=== PATIENT | female | born 1970 | race Caucasian/White ===

== ENCOUNTER → 2016-11-29 | Outpatient (CLI) | payer BC ==
[~2016-11-29] MED LIST: LAMO25TA PO; METH1TAB10 PO; METH5TAB4 PO; ONDA4TAB10 SL; OPTIRAY 320 IV PRN; PRENTAB26 PO; SERT50TA PO
--- NOTE | 2016-11-29 09:13 | DIAGNOSTIC IMAGING REPORT ---
CT ABD/PELVIS IV AND ORAL CONT CLINICAL HISTORY: K42.9 Periumbilical [id number] COMPARISON STUDY: None. TECHNIQUE: Following the IV administration of 94 mL of Optiray-320, CT scan of the abdomen and pelvis was performed from the lung bases to the proximal femurs. Images are reviewed in the axial, sagittal, and coronal planes. IV contrast was administered without complication. CT DOSE: 677.32 mGy.cm FINDINGS: Lower chest: There are mild dependent atelectatic changes. Liver: The contrast-enhanced liver is normal in size, contour, and attenuation. There is no intrahepatic biliary ductal dilatation. The hepatic veins and portal veins are patent. Gallbladder: Unremarkable. Spleen: Normal in size and attenuation. Pancreas: Unremarkable. Adrenal glands: Unremarkable. Kidneys: There is symmetric renal cortical enhancement. The kidneys are normal in size without hydronephrosis. Bowel: There are postsurgical changes of gastric bypass. There are no transition zones indicate bowel obstruction. The appendix appears normal. There is no acute diverticulitis. There is a periumbilical hernia with a neck measuring 33 mm. This contains a small knuckle of small bowel. There are no obstructive changes. Peritoneum: There is no intraperitoneal free air or abdominal ascites. Vasculature: The abdominal aorta is normal in course and caliber. Adenopathy: None. Pelvic viscera: The bladder, and pelvic viscera are unremarkable. Skeletal structures: No destructive osseous lesions are seen. IMPRESSION: 1. Ventral hernia with a 33 mm neck located immediately superior to the umbilicus. This contains a small knuckle of small bowel. There is no current evidence of obstruction 2. No evidence of bowel obstruction. No evidence of free air 3. No evidence of acute appendicitis. No evidence of acute diverticulitis Electronically signed by: Christo Woods M.D. 11/29/2016 9:12 AM Dictated Date/Time: 11/29/2016 8:58 AM
== END | disposition home or self-care (01) ==
LOC: C.CTS 08:27
PROVIDERS: ATTEND Surgery
DX: K42.9 Umbilical hernia without obstruction or gangrene (principal)

== ENCOUNTER 2017-02-08 21:42 | Emergency (ER) | payer BC ==
[~2017-02-08] VITALS: Ht 157.5 cm; Wt 92.0 kg
[~2017-02-08 21:42] MED LIST changes: -LAMO25TA PO; -METH1TAB10 PO; -ONDA4TAB10 SL; -OPTIRAY 320 IV PRN
[2017-02-08 21:46] VITALS: TEMP 36.7; Ht 157.5 cm; Wt 92.0 kg
[2017-02-08] MEDS ORDERED: METH1TAB10 PO (22:15)
[2017-02-08] MEDS ORDERED: LAMO25TA PO (22:15)
[2017-02-08] MEDS ORDERED: MoRPHine SULFATE 10 MG/ML CARP/VIAL IV STA (22:37)
[2017-02-08] MEDS ORDERED: ONDANSETRON INJ 2 MG/ML 2 ML VIAL IV STA (22:37)
[2017-02-08] MEDS ORDERED: SODIUM CHLORIDE 0.9% 1000ML 1,000 ML IV STA (22:37)
[2017-02-08] MEDS ORDERED: OPTIRAY 320 IV PRN (22:45)
[2017-02-08 22:58] LABS: BASO % 0.1 %; BASO ABS # 0.01 K/uL (0-0.2); COMPLETE YES; EOS % 0.3 %; HEMATOCRIT 39.4 % (37-47); IG% 0.2 %; LYMPH % 19.3 %; LYMPH ABS # 2.31 K/uL (1.2-3.4); MEAN CELL VOLUME 91.4 fL (80-100); MEAN CORPUSCULAR HEMOGLOBIN 31.8 pg (25-34); MEAN CORPUSCULAR HGB CONC 34.8 g/dl (32-36); MEAN PLATELET VOLUME 9.1 fL (7.4-10.4); NEUT % 73.1 %; PLATELET COUNT 315 K/uL (130-400); RED BLOOD COUNT 4.31 M/uL (4.2-5.4); WHITE BLOOD COUNT 11.99 K/uL (4.8-10.8)
[2017-02-08 23:19] LABS: BUN/CREATININE RATIO 14.7 (10-20); CALCIUM 8.7 mg/dl (8.5-10.1); CREATININE 0.73 mg/dl (0.60-1.20); POTASSIUM 3.5 mmol/L (3.5-5.1)
--- NOTE | 2017-02-08 23:58 | DIAGNOSTIC IMAGING REPORT ---
CT SCAN OF THE ABDOMEN AND PELVIS WITH IV CONTRAST CLINICAL HISTORY: Left-sided hernia repair performed yesterday. Pain at incision site. COMPARISON STUDY: Abdominal CT dated 11/29/2016. TECHNIQUE: Following the IV administration of 100 cc of Optiray 320, CT scan of the abdomen and pelvis is performed from the lung bases to the proximal femora. Images are reviewed in the axial, sagittal, and coronal planes. IV contrast was administered without complication. Automated dose control exposure was utilized. CT DOSE: 741.40 mGy.cm FINDINGS: Lung bases: The heart is normal in size and without pericardial effusion. There is significant bibasilar atelectasis. The lung bases are otherwise clear. Liver: The contrast-enhanced liver is normal in size, contour, and attenuation. There is no intrahepatic biliary ductal dilatation. The hepatic veins and portal veins are patent. Gallbladder: Unremarkable. Spleen: Normal in size and attenuation. Pancreas: Unremarkable. Adrenal glands: Unremarkable. Kidneys: The contrast enhanced kidneys are normal in size and without hydronephrosis. The kidneys enhance symmetrically. Abdominal vasculature: The abdominal aorta is normal in course and caliber. Stomach and bowel: There are postoperative changes consistent with a Danielle-en-Y gastric bypass procedure. No bowel obstruction is seen. A tiny hiatal hernia is noted. There is moderate colonic fecal retention. The appendix is well-visualized and normal. Abdominal wall: There is a small fat-containing umbilical hernia. There are foci of subcutaneous gas within the abdominal pannus. Foci of induration within the right lower quadrant on image #307 as well as induration in the periumbilical soft tissues are likely related to laparoscopy ports. There is a small gas and fluid containing collection in the ventral abdominal wall just above the umbilicus seen on axial image #275. This measures 3.4 x 5.3 cm and does not extend through the peritoneal lining. Peritoneum: There is no intraperitoneal free air or abdominal ascites. Lymphadenopathy: None. Pelvic viscera: The bladder, uterus, and adnexa are normal as visualized. Tiny ovarian follicles are noted. Phleboliths are observed in the pelvis. Skeletal structures: No lytic or blastic lesions are seen. IMPRESSION: 1. There are no acute infectious or inflammatory findings in the abdomen or pelvis. 2. There are postoperative changes consistent with a Danielle-en-Y gastric bypass procedure. No bowel obstruction is seen. 3. Foci of subcutaneous gas and mild induration within the ventral abdominal pannus are detailed above and likely related to the reported history of hernia repair performed yesterday. 4. There is a 5.3 cm gas and fluid containing collection within the ventral abdominal wall just above the umbilicus. Given the history of surgery one day previously this likely represents a postoperative seroma/hematoma. Abscess is considered unlikely given the time course. Clinical correlation will be required. 5. Additional findings as above. Electronically signed by: Gary Arreola M.D. 02/08/2017 11:57 PM Dictated Date/Time: 02/08/2017 11:50 PM
[2017-02-09] MEDS ORDERED: ONDANSETRON HOME PACK 4MG OD TAB PO ONE (00:45)
[2017-02-09] MEDS ORDERED: ONDA4TAB10 SL (00:48)
--- NOTE | 2017-02-09 00:49 | EMERGENCY ROOM VISIT NOTE ---
History First contact with patient: 21:58 Chief Complaint: ABDOMINAL PAIN Stated Complaint: HERNIA REPAIR,VOMITING,NAUSEA Nursing Triage Summary: Pt had surgery yesterday for hernia repair at [place]. Pt took the pain medication at 1230 today and vomited 3 times. pt continues to have abdominal pain without medication. +nausea History of Present Illness The patient is a 46 year old female who presents to the Emergency Room with complaints of abdominal pain and vomiting. The patient had a hernia repair yesterday at . The patient states that she was feeling well after the procedure. She took an oxycodone this morning and states that she became nauseous afterward. She has had 3 episodes of vomiting. She has not been to take any pain medication since then. She reports that the pain is now worsening. She called her surgeon and they told her to come to the emergency department. She denies any fevers/chills. She states she does have a headache but has not been able to eat or drink much. She denies any urinary symptoms. She has not moved her bowels since the surgery. She denies any redness or drainage of the incisions. She rates her discomfort a 6/10. Review of Systems A complete 10 point review of systems was reviewed with the patient with pertinent positives and negatives as per history of present illness. All else were negative. Past Medical/Surgical History Medical Problems: (1) Eclamptic seizure (2) Eclamptic seizure (3) Headache (4) Hypertension (5) intrauterine 36 weeks 1day (6) intrauterine 36 weeks 1day Social History Smoking Status: Former Smoker Drug Use: none Marital Status: Occupation Status: employed Current/Historical Medications Scheduled Lamotrigine (Lamictal), 25 MG PO DAILY Methylphenidate Hcl (Ritalin), 15 MG PO BID Multivit/Min/Iron/Fol Ac/Pren ( Vitamin), 2 TAB PO QAM Ondasetron Odt (Zofran Odt), 4 MG SL Q6H Sertraline (Zoloft), 50 MG PO QAM Allergies Coded Allergies: Penicillins (Verified Allergy, Unknown, RASH, 02/08/17) Physical Exam Vital Signs Date Time Temp Pulse Resp B/P (MAP) Pulse Ox O2 Delivery O2 Flow Rate FiO2 02/09/17 01:07 80 18 118/65 95 02/08/17 23:50 80 18 115/62 94 Room Air 7/8/17 22:49 69 20 119/77 94 Room Air 02/08/17 21:46 36.7 86 16 111/79 95 Room Air Physical Exam VITALS: Vitals are noted on the nurse's note and reviewed by myself. Vital signs stable. GENERAL: This is a 46-year-old female, in no acute distress, nondiaphoretic, well-developed well-nourished. SKIN: There are 2 surgical incisions to the right side of the abdomen. They appear to be healing well and are without erythema or drainage. HEART: Regular rate and rhythm without murmurs gallops or rubs. LUNGS: Clear to auscultation bilaterally without wheezes, rales or rhonchi. ABDOMEN: Positive bowel sounds x 4. Soft, mild diffuse tenderness to palpation. No guarding or rebound tenderness. NEURO: Patient was alert and oriented to person place and time. Medical Decision & Procedures ER Provider Diagnostic Interpretation: CT SCAN OF THE ABDOMEN AND PELVIS WITH IV CONTRAST FINDINGS: Lung bases: The heart is normal in size and without pericardial effusion. There is significant bibasilar atelectasis. The lung bases are otherwise clear. Liver: The contrast-enhanced liver is normal in size, contour, and attenuation. There is no intrahepatic biliary ductal dilatation. The hepatic veins and portal veins are patent. Gallbladder: Unremarkable. Spleen: Normal in size and attenuation. Pancreas: Unremarkable. Adrenal glands: Unremarkable. Kidneys: The contrast enhanced kidneys are normal in size and without hydronephrosis. The kidneys enhance symmetrically. Abdominal vasculature: The abdominal aorta is normal in course and caliber. Stomach and bowel: There are postoperative changes consistent with a Danielle-en-Y gastric bypass procedure. No bowel obstruction is seen. A tiny hiatal hernia is noted. There is moderate colonic fecal retention. The appendix is well-visualized and normal. Abdominal wall: There is a small fat-containing umbilical hernia. There are foci of subcutaneous gas within the abdominal pannus. Foci of induration within the right lower quadrant on image #307 as well as induration in the periumbilical soft tissues are likely related to laparoscopy ports. There is a small gas and fluid containing collection in the ventral abdominal wall just above the umbilicus seen on axial image #275. This measures 3.4 x 5.3 cm and does not extend through the peritoneal lining. Peritoneum: There is no intraperitoneal free air or abdominal ascites. Lymphadenopathy: None. Pelvic viscera: The bladder, uterus, and adnexa are normal as visualized. Tiny ovarian follicles are noted. Phleboliths are observed in the pelvis. Skeletal structures: No lytic or blastic lesions are seen. IMPRESSION: 1. There are no acute infectious or inflammatory findings in the abdomen or pelvis. 2. There are postoperative changes consistent with a Danielle-en-Y gastric bypass procedure. No bowel obstruction is seen. 3. Foci of subcutaneous gas and mild induration within the ventral abdominal pannus are detailed above and likely related to the reported history of hernia repair performed yesterday. 4. There is a 5.3 cm gas and fluid containing collection within the ventral abdominal wall just above the umbilicus. Given the history of surgery one day previously this likely represents a postoperative seroma/hematoma. Abscess is considered unlikely given the time course. Clinical correlation will be required. 5. Additional findings as above. Electronically signed by: Gary Arreola M.D. Laboratory Results 02/08/17 22:45 Red Blood Count 4.31, Mean Corpuscular Volume 91.4, Mean Corpuscular Hemoglobin 31.8, Mean Corpuscular Hemoglobin Concent 34.8, Mean Platelet Volume 9.1, Neutrophils (%) (Auto) 73.1, Lymphocytes (%) (Auto) 19.3, Monocytes (%) (Auto) 7.0, Eosinophils (%) (Auto) 0.3, Basophils (%) (Auto) 0.1, Neutrophils # (Auto) 8.77, Lymphocytes # (Auto) 2.31, Monocytes # (Auto) 0.84, Eosinophils # (Auto) 0.04, Basophils # (Auto) 0.01 02/08/17 22:45 Test 02/08/17 22:45 White Blood Count 11.99 K/uL (4.8-10.8) Red Blood Count 4.31 M/uL (4.2-5.4) Hemoglobin 13.7 g/dL (12.0-16.0) Hematocrit 39.4 % (37-47) Mean Corpuscular Volume 91.4 fL (80-100) Mean Corpuscular Hemoglobin 31.8 pg (25-34) Mean Corpuscular Hemoglobin Concent 34.8 g/dl (32-36) Platelet Count 315 K/uL (130-400) Mean Platelet Volume 9.1 fL (7.4-10.4) Neutrophils (%) (Auto) 73.1 % Lymphocytes (%) (Auto) 19.3 % Monocytes (%) (Auto) 7.0 % Eosinophils (%) (Auto) 0.3 % Basophils (%) (Auto) 0.1 % Neutrophils # (Auto) 8.77 K/uL (1.4-6.5) Lymphocytes # (Auto) 2.31 K/uL (1.2-3.4) Monocytes # (Auto) 0.84 K/uL (0.11-0.59) Eosinophils # (Auto) 0.04 K/uL (0-0.5) Basophils # (Auto) 0.01 K/uL (0-0.2) RDW Standard Deviation 39.7 fL (36.4-46.3) RDW Coefficient of Variation 11.7 % (11.5-14.5) Immature Granulocyte % (Auto) 0.2 % Immature Granulocyte # (Auto) 0.02 K/uL (0.00-0.02) Anion Gap 8.0 mmol/L (3-11) Est Creatinine Clear Calc Drug Dose 103.8 ml/min Estimated GFR () 116.1 Estimated GFR (Non- 100.2 BUN/Creatinine Ratio 14.7 (10-20) Calcium Level 8.7 mg/dl (8.5-10.1) Total Bilirubin 0.8 mg/dl (0.2-1) Direct Bilirubin 0.2 mg/dl (0-0.2) Aspartate Amino Transf (AST/SGOT) 16 U/L (15-37) Alanine Aminotransferase (ALT/SGPT) 20 U/L (12-78) Alkaline Phosphatase 96 U/L (45-117) Total Protein 7.0 gm/dl (6.4-8.2) Albumin 3.5 gm/dl (3.4-5.0) Medications Administered Medications (Trade) Dose Ordered Sig/Megan Route Start Time Stop Time Status Last Admin Dose Admin Sodium Chloride 1,000 ml @ 999 mls/hr Q1H1M STAT IV 02/08/17 22:37 02/08/17 23:37 DC 02/08/17 22:46 999 MLS/HR Ondansetron HCl (Zofran Inj) 4 mg NOW STAT IV 02/08/17 22:37 02/08/17 22:39 DC 02/08/17 22:47 4 MG Morphine Sulfate (MoRPHine SULFATE INJ) 6 mg NOW STAT IV 02/08/17 22:37 02/08/17 22:39 DC 02/08/17 22:47 6 MG Ondansetron HCl (ZOFRAN ODT 4MG Home Pack) 1 homepack UD ONCE PO 02/09/17 00:45 02/09/17 00:46 DC 02/09/17 01:01 1 HOMEPACK ED Course The patient was evaluated as above. Labs were drawn and IV access was obtained. Patient was medicated with IV Zofran, morphine and fluids. CT of the abdomen and pelvis was performed and read by radiology as above. Patient was reevaluated and stated she felt much better. Discharge instructions were reviewed with the patient. The patient verbalized understanding of my assessment and treatment plan and was discharged home in good condition. Medical Decision Differential diagnosis includes postop infection, postop bleeding, adverse reaction to medication, among others. The patient is a 46-year-old female who presents today complaining of abdominal pain after a hernia repair yesterday. Labs revealed a mild leukocytosis consistent with vomiting or recent surgery. CT scan of the abdomen and pelvis was performed and showed evidence of a small hematoma/seroma, but no convincing evidence of abscess. Her incisions do not appear infected. I feel the patient' s vomiting is likely secondary to the oxycodone. She was given Zofran and felt much better. She will be given Zofran at home with her pain medication. She was instructed to call her surgeon on Friday to schedule follow-up. Based on the patient's presentation and work up, I feel the patient is stable for outpatient treatment. The patient was educated to return to the emergency department for any worsening of their current condition or new/concerning symptoms. She will follow up with her surgeon. The patient's case was reviewed with Dr. Rhodes, ED attending physician, who agreed with my assessment and treatment plan. Medication reconciliation: I attest that I have personally reviewed the patient 's current medication list. Blood pressure screening: Patient was found to have normal blood pressure on screening and does not require follow-up. Impression Primary Impression: Adverse reaction to narcotic drug Additional Impression: Vomiting Departure Information Dispostion Home / Self-Care Condition GOOD Prescriptions Ondasetron Odt (ZOFRAN ODT) 4 Mg Tab 4 MG SL Q6H for Nausea, #15 TAB Prov: Ashleigh Tony PA-C 02/09/17 Referrals Shakira Manzano M.D. (PCP) Patient Instructions My [facility] Additional Instructions You have been prescribed Zofran to be used for any nausea or vomiting. Take as prescribed. Continue the oxycodone at home as needed for pain. Call your surgeon Friday to let them know you were in the ER. Return here for any fevers, worsening pain, worsening vomiting or any other new/ concerning symptoms. Problem Qualifiers Primary Impression: Adverse reaction to narcotic drug Encounter type: initial encounter Qualified Codes: T40.605A - Adverse effect of unspecified narcotics, initial encounter Additional Impression: Vomiting Vomiting type: unspecified Vomiting Intractability: non-intractable Nausea presence: with nausea Qualified Codes: R11.2 - Nausea with vomiting, unspecified
[2017-02-09 01:07] VITALS: BP 118/65; PULSE 80; O2SAT 95
== END 2017-02-09 01:09 | disposition home or self-care (01) ==
LOC: C.EDB 21:42 → C.EDC 02-09 01:09
DX: R11.2 Nausea with vomiting, unspecified (principal); T40.605A Adverse effect of unspecified narcotics, initial encounter; I10 Essential (primary) hypertension; Z87.891 Personal history of nicotine dependence; Z79.899 Other long term (current) drug therapy

== ENCOUNTER 2022-06-28 16:58 | Inpatient (IN) ==
[2022-06-28] MEDS ORDERED: SODIUM CHLORIDE 0.9% 1000ML 1,000 ML IV STA (17:12)
[2022-06-28] MEDS ORDERED: ACETAMINOPHEN 500 MG TAB PO STA (17:12)
[2022-06-28] MEDS ORDERED: SODIUM CHLORIDE 0.9% 1000ML 1,000 ML IV SCH (17:15)
[2022-06-28 17:52] LABS: Hematocrit (blood only) 32.1 % (34.1-44.9); Hemoglobin 10.1 g/dl (12.0-16.0); Mean Platelet Volume 8.8 fL (9.4-12.3); Platelet Count 363 K/uL (130-400); White Blood Count 16.11 K/ul (4.8-10.8)
--- NOTE | 2022-06-28 18:13 | XRay Report ---
XR chest 1V portable HISTORY: 51 years-old Female Dyspnea acute shortness of breath COMPARISON: Chest radiograph 01/28/2022 TECHNIQUE: AP view of the chest FINDINGS: Cardiac silhouette is mildly enlarged. Mild right hemidiaphragmatic elevation. No pneumothorax, pleur al effusion, airspace consolidation or overt pulmonary edema identified. Bones of the chest appear gr ossly intact. IMPRESSION: No acute process. ACT 112: Negative or not required by law. The above report was generated using voice recognition software. It may contain grammatical, syntax o r spelling errors. Electronically signed by: Konstantin Licea M.D. 06/28/2022 6:11 PM
[2022-06-28 18:14] LABS: Albumin Globulin Ratio 0.9 (0.9-2); Albumin Level 3.5 gm/dl (3.4-5.0); BUN Creatinine Ratio 16.7 (10-20); Bilirubin,Total 0.7 mg/dl (0.2-1.0); Calcium 8.5 mg/dl (8.5-10.1); Creatinine Clr Calc Pharmacy 103.3 ml/min; Est GFR (Non-African American) 98.3 ml/min; Potassium 3.6 mmol/L (3.5-5.1); Total Protein 7.5 gm/dl (6.0-8.3)
[2022-06-28 18:17] LABS: Troponin I High Sensitivity 11.2 pg/ml (0-14)
[2022-06-28 18:18] LABS: Basophils # (auto) 0.08 K/uL (0-0.2); Basophils % (auto) 0.5 %; Eosinophils # (auto) 0.05 K/uL (0-0.50); Eosinophils % (auto) 0.3 %; Immature Granulocytes # (auto) 0.05 K/uL (0.00-0.02); Immature Granulocytes % (auto) 0.3 %; Lymphocytes # (auto) 0.97 K/uL (1.2-3.4); Mean Corpuscular Hemoglobin 26.9 pg (25.0-34.0); Mean Corpuscular Hgb Conc 31.5 g/dL (32.0-36.0); Mean Corpuscular Volume 85.4 fL (80.0-100.0); Monocytes # (auto) 0.46 K/uL (0.24-0.82); Monocytes % (auto) 2.9 %; RDW Coefficient of Variation 12.7 % (11.5-14.5); RDW Standard Deviation 39.4 fL (36.4-46.3); Red Blood Count 3.76 M/uL (3.93-5.22)
[2022-06-28] MEDS ORDERED: CEFEPIME 2,000 MG/20 ML VIAL IV STA (18:25)
[2022-06-28] MEDS ORDERED: SODIUM CHLORIDE 0.9% 1000ML 500 ML IV ONE (18:25)
[2022-06-28 18:35] LABS: Adenovirus PCR Not Detected (NotDetected); Bordetella parapertussis PCR Not Detected (NotDetected); Bordetella pertussis PCR Not Detected (NotDetected); Chlamydia pneumoniae PCR Not Detected (NotDetected); Coronavirus 229E PCR Not Detected (NotDetected); Coronavirus CoV-2 (COVID19)PCR Not Detected (NotDetected); Coronavirus HKU1 PCR Not Detected (NotDetected); Coronavirus NL63 PCR Not Detected (NotDetected); Coronavirus OC43PCR Not Detected (NotDetected); Human Metapneumovirus PCR Not Detected (NotDetected); Influenza A PCR Not Detected (NotDetected); Influenza B PCR Not Detected (NotDetected); Mycoplasma pneumoniae PCR Not Detected (NotDetected); Parainfluenza Virus 1 PCR Not Detected (NotDetected); Parainfluenza Virus 2 PCR Not Detected (NotDetected); Parainfluenza Virus 3 PCR Not Detected (NotDetected); Parainfluenza Virus 4 PCR Not Detected (NotDetected); Respiratory Syncytial VirusPCR Not Detected (NotDetected)
[2022-06-28 18:44] LABS: Rhinovirus/Enterovirus PCR DETECTED (NotDetected)
--- NOTE | 2022-06-28 19:17 | Emergency Department Note ---
Impression & Plan Flu-like symptoms, Leukocytosis, Fever, Rhinovirus infection, Hyponatremia, Shortness of breath ED Provider Note INFORMANT: Patient ED PROVIDER(S): Randal Rodriguez MD CHIEF COMPLAINT: Flulike symptoms PLAN: Disposition: Admitted Condition: Good Outpatient prescription management: none Referral: None MEDICAL DECISION MAKING: Patient presented because of flulike symptoms. She was very febrile and tachycardic. She was placed in isolation and work-up was initiated. Her CBC revealed a left shift on the differential and moderate leukocytosis. Chemistry panel revealed mild hyponatremia. Serum lactate was mildly elevated. Patient received 1500 mL of normal saline solution by bolus and was hydrated she was treated empirically with IV cefepime and Tylenol. Bio fire testing was ordered. Chest x-ray did not reveal any acute process. Vital signs began to improve. Bio fire testing revealed the presence of enterovirus/rhinovirus. Procalcitonin was mildly elevated. Patient was also given doxycycline IV. She was still very tachypneic and short of breath. Her testing revealed the presence of an enterovirus/rhinovirus however her blood work suggest possible bacterial infe ction with findings consistent with SIRS/early sepsis. In light of her symptoms and laboratory findings further management in the hospital will be necessary. Patient was in agreement. Consultation was made with Dr. Forest Luu of the [facility] service. Patient was evaluated in the ER for further management. Triage Nursing notes reviewed and agree them. Vital Signs: reviewed and remarkable for fever, tachycardia Differential diagnosis: Viral syndrome, otitis, pharyngitis, pneumonia, influenza, meningitis, urinary tract infection, sepsis, bacteremia, as well as other pathologies. Diagnostics interpreted by me: ECG: Twelve-lead ECG revealed sinus tachycardia at 127 bpm. Left axis deviation. No ST elevation or depression. Cardiac Monitoring: Cardiac monitoring ordered by me: The patient was placed on continuous cardiac monitoring and observed. It revealed a sinus tachycardia at 115 beats per minute without ectopy or evidence of dysrhythmia. Imaging studies: Chest x-ray as noted below. HPI: The patient is a 51year old female who presents to the Emergency Room with complaints of flulike symptoms. This started few days ago and is worsening today. The patient also notes the following associated symptoms, shortness of breath, mild headache, fever, congestion, mild cough. The patient has tried ibuprofen for relieving factors. Current pain is rated as 6/10. No known sick contacts. pt denies LOC, diaphoresis, visual changes, neck pain, chest pain, nausea, vomiting, abdominal pain, back pain, melena, hematochezia, urinary symptoms, numbness, weakness, lymphadenopathy, rash, or other complaints. ROS: See above HPI for pertinent positives & negatives. A total of 10 systems reviewed and were otherwise negative. PAST MEDICAL HISTORY:See Below , stress urinary incontinence PAST SURGICAL HISTORY:See Below, FAMILY HISTORY:See Below SOCIAL HISTORY:See Below, non-smoker HOME MEDICATIONS:See Below ALLERGIES:See Below VITALS:See Below PHYSICAL EXAMINATION: GENERAL: Awake, alert, ill-appearing, in mild distress HENT: Normocephalic, atraumatic. Oropharynx unremarkable. EYES: Normal conjunctiva. Sclera non-icteric. NECK: Inspection normal. Non-tender. Supple. No nuchal rigidity. FROM. No masses. RESPIRATORY: Coarse breath sounds bilaterally. No wheezes. No rales. Increased respiratory effort. CARDIAC: Very tachycardic rate. Normal rhythm. No murmurs. No rubs. Extremities warm and well perfused. Pulses equal. No JVD. GI: Soft, non-distended. No tenderness to palpation. No rebound or guarding. No masses. RECTAL: Deferred. MUSCULOSKELETAL: Atraumatic. Chest examination reveals no tenderness. The back is symmetrical on inspection without obvious abnormality. There is no CVA tenderness to palpation. No joint edema. LOWER EXTREMITIES: Calves are equal size bilaterally and non-tender. No edema. No discoloration. NEURO: Normal sensorium. No sensory or motor deficits noted. SKIN: No rash or jaundice noted. Randal Rodriguez MD Past Med/Surg History Medical History Eclamptic seizure Hypertension Surgical History No pertinent past surgical history Family History (Updated 05/30/22 @ 10:06 by RISA Rowe) Grandfather History of open heart surgery Grandmother (Maternal) Breast cancer Denies family history of Ovarian cancer Colorectal cancer Social History (Updated 05/30/22 @ 10:06 by RISA Rowe) Smoking Status: Never smoker Tobacco Type: Cigarettes Preferred Language: Swedish Feels Safe at Home: Yes Allergies Allergies Allergy/AdvReac Type Severity Reaction Status Date / Time Penicillins Allergy Unknown RASH Verified 06/28/22 20:04 Home Meds Home Medications Medication Instructions Recorded Confirmed acetaminophen 325 mg tablet 950 mg PO QID PRN Fever Or Pain 06/28/22 06/28/22 (Tylenol) dextroamphetamine sulfate 15 mg 15 mg PO DAILY 06/28/22 06/28/22 capsule,extended release ergocalciferol (vitamin D2) 1,250 1,250 mcg PO MO 06/28/22 06/28/22 mcg (50,000 unit) capsule (Vitamin D2) ibuprofen 200 mg tablet 600 mg PO Q4 PRN Pain 06/28/22 06/28/22 lamotrigine 200 mg tablet,extended 0 mg PO DAILY 06/28/22 06/28/22 release 24 hr sertraline 25 mg tablet (Zoloft) 0 mg PO DAILY 06/28/22 06/28/22 Results & Data (ED) Vital Signs Vital Signs - 24 hr 06/28/22 17:07 06/28/22 17:39 06/28/22 18:36 Temperature 39.6 C H 38.2 C H Temperature Source Temporal Artery Scan Oral Pulse Rate 138 H Pulse Rate [Right Finger] Respiratory Rate 26 H Respiratory Effort / Characteristics Short of Breath Respiratory Pattern Regular Blood Pressure 150/88 H Blood Pressure [Right Arm] Blood Pressure Mean 108 Blood Pressure Mean [Right Arm] Blood Pressure Position Sitting Pulse Oximetry 98 Oxygen Delivery Method Room Air Room Air Sepsis Recent Fever Within 48 Hours Yes Sepsis New/Unexplained Change in Mental Status No Sepsis Action Taken by Nursing No Action Required Pulse Oximetry Post Tiitration 98 06/28/22 18:36 06/28/22 19:29 06/28/22 20:02 Temperature Temperature Source Pulse Rate Pulse Rate [Right Finger] 111 H 104 H Respiratory Rate Respiratory Effort / Characteristics Respiratory Pattern Blood Pressure Blood Pressure [Right Arm] 116/67 Blood Pressure Mean Blood Pressure Mean [Right Arm] 83 Blood Pressure Position Pulse Oximetry 98 98 96 Oxygen Delivery Method Room Air Room Air Room Air Sepsis Recent Fever Within 48 Hours Sepsis New/Unexplained Change in Mental Status Sepsis Action Taken by Nursing Pulse Oximetry Post Tiitration Laboratory Data Result diagrams: 06/28/22 17:30 06/28/22 17:30 Lab Results 06/28/22 06/28/22 06/28/22 Range/Units 17:30 17:30 17:30 WBC 16.11 H (4.8-10.8) K/ul RBC 3.76 L (3.93-5.22) M/uL Hgb 10.1 L (12.0-16.0) g/dl Hct 32.1 L (34.1-44.9) % MCV 85.4 (80.0-100.0) fL MCH 26.9 (25.0-34.0) pg MCHC 31.5 L (32.0-36.0) g/dL RDW Std Deviation 39.4 (36.4-46.3) fL RDW Coeff of Andrea 12.7 (11.5-14.5) % Plt Count 363 (130-400) K/uL MPV 8.8 L (9.4-12.3) fL Immature Gran % (Auto) 0.3 % Neut % (Auto) 90.0 % Lymph % (Auto) 6.0 % [place] % (Auto) 2.9 % Eos % (Auto) 0.3 % Baso % (Auto) 0.5 % Neut # (Auto) 14.50 H (1.4-6.5) K/uL Lymph # (Auto) 0.97 L (1.2-3.4) K/uL [place] # (Auto) 0.46 (0.24-0.82) K/uL Eos # (Auto) 0.05 (0-0.50) K/uL Baso # (Auto) 0.08 (0-0.2) K/uL Immature Gran # (Auto) 0.05 H (0.00-0.02) K/uL Sodium 129 L (136-145) mmol/L Potassium 3.6 (3.5-5.1) mmol/L Chloride 101 (98-107) mmol/L Carbon Dioxide 18 L (21-32) mmol/L Anion Gap 10 (3-11) BUN 12 (6-23) mg/dl Creatinine 0.72 (0.6-1.2) mg/dl Est Cr Clr Drug Dosing 103.3 ml/min Est GFR ( Amer) 114.0 ml/min Est GFR (Non-Af Amer) 98.3 ml/min BUN/Creatinine Ratio 16.7 (10-20) Glucose 104 H (70-99(Fasting)) mg/dl Osmolality (280-300) mOsm/kg Lactate (0.4-2.0) mmol/L Calcium 8.5 (8.5-10.1) mg/dl Total Bilirubin 0.7 (0.2-1.0) mg/dl AST 24 (13-39) U/L ALT 14 (7-52) U/L Alkaline Phosphatase 92 (34-104) U/L Troponin I High Sens 11.2 D (0-14) pg/ml Total Protein 7.5 (6.0-8.3) gm/dl Albumin 3.5 (3.4-5.0) gm/dl Globulin 4.0 (2.5-4.0) gm/dl Albumin/Globulin Ratio 0.9 (0.9-2) Procalcitonin 0.85 H (0-0.5) ng/ml Urine Color Urine Appearance (Clear) Urine pH (4.5-7.5) Ur Specific Mccall (1.000-1.030) Urine Protein (Negative) Urine Glucose (UA) (Negative) Urine Ketones (Negative) Urine Blood (Negative) Urine Nitrite (Negative) Urine Bilirubin (Negative) Urine Urobilinogen (Negative) Ur Leukocyte Esterase (Negative) Urine Osmolality (500-800) mOsm/kg Ur Random Sodium mmol/L Adenovirus (PCR) (NotDetected) B. pertussis DNA (PCR) (NotDetected) B.parapertussis DNA PCR (NotDetected) C. pneumoniae DNA (PCR) (NotDetected) Coronavirus OC43 (PCR) (NotDetected) Coronavirus HKU1 (PCR) (NotDetected) Coronavirus 229E (PCR) (NotDetected) SARS-CoV-2 (PCR) (NotDetected) Coronavirus NL63 (PCR) (NotDetected) Human Metapneumovir PCR (NotDetected) Influenza Type A (PCR) (NotDetected) Influenza Type B (PCR) (NotDetected) M. pneumoniae (PCR) (NotDetected) Parainfluenza 1 (PCR) (NotDetected) Parainfluenza 2 (PCR) (NotDetected) Parainfluenza 3 (PCR) (NotDetected) Parainfluenza 4 (PCR) (NotDetected) RSV (PCR) (NotDetected) Entero/Rhino (PCR) (NotDetected) 06/28/22 06/28/22 06/28/22 Range/Units 17:30 17:30 17:30 WBC (4.8-10.8) K/ul RBC (3.93-5.22) M/uL Hgb (12.0-16.0) g/dl Hct (34.1-44.9) % MCV (80.0-100.0) fL MCH (25.0-34.0) pg MCHC (32.0-36.0) g/dL RDW Std Deviation (36.4-46.3) fL RDW Coeff of Andrea (11.5-14.5) % Plt Count (130-400) K/uL MPV (9.4-12.3) fL Immature Gran % (Auto) % Neut % (Auto) % Lymph % (Auto) % [place] % (Auto) % Eos % (Auto) % Baso % (Auto) % Neut # (Auto) (1.4-6.5) K/uL Lymph # (Auto) (1.2-3.4) K/uL [place] # (Auto) (0.24-0.82) K/uL Eos # (Auto) (0-0.50) K/uL Baso # (Auto) (0-0.2) K/uL Immature Gran # (Auto) (0.00-0.02) K/uL Sodium (136-145) mmol/L Potassium (3.5-5.1) mmol/L Chloride (98-107) mmol/L Carbon Dioxide (21-32) mmol/L Anion Gap (3-11) BUN (6-23) mg/dl Creatinine (0.6-1.2) mg/dl Est Cr Clr Drug Dosing ml/min Est GFR ( Amer) ml/min Est GFR (Non-Af Amer) ml/min BUN/Creatinine Ratio (10-20) Glucose (70-99(Fasting)) mg/dl Osmolality 270 L (280-300) mOsm/kg Lactate 2.3 H* (0.4-2.0) mmol/L Calcium (8.5-10.1) mg/dl Total Bilirubin (0.2-1.0) mg/dl AST (13-39) U/L ALT (7-52) U/L Alkaline Phosphatase (34-104) U/L Troponin I High Sens (0-14) pg/ml Total Protein (6.0-8.3) gm/dl Albumin (3.4-5.0) gm/dl Globulin (2.5-4.0) gm/dl Albumin/Globulin Ratio (0.9-2) Procalcitonin (0-0.5) ng/ml Urine Color Urine Appearance (Clear) Urine pH (4.5-7.5) Ur Specific Mccall (1.000-1.030) Urine Protein (Negative) Urine Glucose (UA) (Negative) Urine Ketones (Negative) Urine Blood (Negative) Urine Nitrite (Negative) Urine Bilirubin (Negative) Urine Urobilinogen (Negative) Ur Leukocyte Esterase (Negative) Urine Osmolality (500-800) mOsm/kg Ur Random Sodium mmol/L Adenovirus (PCR) Not Detected (NotDetected) B. pertussis DNA (PCR) Not Detected (NotDetected) B.parapertussis DNA PCR Not Detected (NotDetected) C. pneumoniae DNA (PCR) Not Detected (NotDetected) Coronavirus OC43 (PCR) Not Detected (NotDetected) Coronavirus HKU1 (PCR) Not Detected (NotDetected) Coronavirus 229E (PCR) Not Detected (NotDetected) SARS-CoV-2 (PCR) Not Detected (NotDetected) Coronavirus NL63 (PCR) Not Detected (NotDetected) Human Metapneumovir PCR Not Detected (NotDetected) Influenza Type A (PCR) Not Detected (NotDetected) Influenza Type B (PCR) Not Detected (NotDetected) M. pneumoniae (PCR) Not Detected (NotDetected) Parainfluenza 1 (PCR) Not Detected (NotDetected) Parainfluenza 2 (PCR) Not Detected (NotDetected) Parainfluenza 3 (PCR) Not Detected (NotDetected) Parainfluenza 4 (PCR) Not Detected (NotDetected) RSV (PCR) Not Detected (NotDetected) Entero/Rhino (PCR) DETECTED A* (NotDetected) 06/28/22 06/28/22 06/28/22 Range/Units 19:36 19:40 19:40 WBC (4.8-10.8) K/ul RBC (3.93-5.22) M/uL Hgb (12.0-16.0) g/dl Hct (34.1-44.9) % MCV (80.0-100.0) fL MCH (25.0-34.0) pg MCHC (32.0-36.0) g/dL RDW Std Deviation (36.4-46.3) fL RDW Coeff of Andrea (11.5-14.5) % Plt Count (130-400) K/uL MPV (9.4-12.3) fL Immature Gran % (Auto) % Neut % (Auto) % Lymph % (Auto) % [place] % (Auto) % Eos % (Auto) % Baso % (Auto) % Neut # (Auto) (1.4-6.5) K/uL Lymph # (Auto) (1.2-3.4) K/uL [place] # (Auto) (0.24-0.82) K/uL Eos # (Auto) (0-0.50) K/uL Baso # (Auto) (0-0.2) K/uL Immature Gran # (Auto) (0.00-0.02) K/uL Sodium (136-145) mmol/L Potassium (3.5-5.1) mmol/L Chloride (98-107) mmol/L Carbon Dioxide (21-32) mmol/L Anion Gap (3-11) BUN (6-23) mg/dl Creatinine (0.6-1.2) mg/dl Est Cr Clr Drug Dosing ml/min Est GFR ( Amer) ml/min Est GFR (Non-Af Amer) ml/min BUN/Creatinine Ratio (10-20) Glucose (70-99(Fasting)) mg/dl Osmolality (280-300) mOsm/kg Lactate (0.4-2.0) mmol/L Calcium (8.5-10.1) mg/dl Total Bilirubin (0.2-1.0) mg/dl AST (13-39) U/L ALT (7-52) U/L Alkaline Phosphatase (34-104) U/L Troponin I High Sens (0-14) pg/ml Total Protein (6.0-8.3) gm/dl Albumin (3.4-5.0) gm/dl Globulin (2.5-4.0) gm/dl Albumin/Globulin Ratio (0.9-2) Procalcitonin (0-0.5) ng/ml Urine Color Yellow Urine Appearance Clear (Clear) Urine pH 7.0 (4.5-7.5) Ur Specific M[place]all 1.003 (1.000-1.030) Urine Protein Negative (Negative) Urine Glucose (UA) Negative (Negative) Urine Ketones Negative (Negative) Urine Blood Negative (Negative) Urine Nitrite Negative (Negative) Urine Bilirubin Negative (Negative) Urine Urobilinogen Negative (Negative) Ur Leukocyte Esterase Negative (Negative) Urine Osmolality 62 L (500-800) mOsm/kg Ur Random Sodium 11 mmol/L Adenovirus (PCR) (NotDetected) B. pertussis DNA (PCR) (NotDetected) B.parapertussis DNA PCR (NotDetected) C. pneumoniae DNA (PCR) (NotDetected) Coronavirus OC43 (PCR) (NotDetected) Coronavirus HKU1 (PCR) (NotDetected) Coronavirus 229E (PCR) (NotDetected) SARS-CoV-2 (PCR) (NotDetected) Coronavirus NL63 (PCR) (NotDetected) Human Metapneumovir PCR (NotDetected) Influenza Type A (PCR) (NotDetected) Influenza Type B (PCR) (NotDetected) M. pneumoniae (PCR) (NotDetected) Parainfluenza 1 (PCR) (NotDetected) Parainfluenza 2 (PCR) (NotDetected) Parainfluenza 3 (PCR) (NotDetected) Parainfluenza 4 (PCR) (NotDetected) RSV (PCR) (NotDetected) Entero/Rhino (PCR) (NotDetected) 06/28/22 Range/Units 19:50 WBC (4.8-10.8) K/ul RBC (3.93-5.22) M/uL Hgb (12.0-16.0) g/dl Hct (34.1-44.9) % MCV (80.0-100.0) fL MCH (25.0-34.0) pg MCHC (32.0-36.0) g/dL RDW Std Deviation (36.4-46.3) fL RDW Coeff of Andrea (11.5-14.5) % Plt Count (130-400) K/uL MPV (9.4-12.3) fL Immature Gran % (Auto) % Neut % (Auto) % Lymph % (Auto) % [place] % (Auto) % Eos % (Auto) % Baso % (Auto) % Neut # (Auto) (1.4-6.5) K/uL Lymph # (Auto) (1.2-3.4) K/uL [place] # (Auto) (0.24-0.82) K/uL Eos # (Auto) (0-0.50) K/uL Baso # (Auto) (0-0.2) K/uL Immature Gran # (Auto) (0.00-0.02) K/uL Sodium (136-145) mmol/L Potassium (3.5-5.1) mmol/L Chloride (98-107) mmol/L Carbon Dioxide (21-32) mmol/L Anion Gap (3-11) BUN (6-23) mg/dl Creatinine (0.6-1.2) mg/dl Est Cr Clr Drug Dosing ml/min Est GFR ( Amer) ml/min Est GFR (Non-Af Amer) ml/min BUN/Creatinine Ratio (10-20) Glucose (70-99(Fasting)) mg/dl Osmolality (280-300) mOsm/kg Lactate 0.8 (0.4-2.0) mmol/L Calcium (8.5-10.1) mg/dl Total Bilirubin (0.2-1.0) mg/dl AST (13-39) U/L ALT (7-52) U/L Alkaline Phosphatase (34-104) U/L Troponin I High Sens (0-14) pg/ml Total Protein (6.0-8.3) gm/dl Albumin (3.4-5.0) gm/dl Globulin (2.5-4.0) gm/dl Albumin/Globulin Ratio (0.9-2) Procalcitonin (0-0.5) ng/ml Urine Color Urine Appearance (Clear) Urine pH (4.5-7.5) Ur Specific M[place]all (1.000-1.030) Urine Protein (Negative) Urine Glucose (UA) (Negative) Urine Ketones (Negative) Urine Blood (Negative) Urine Nitrite (Negative) Urine Bilirubin (Negative) Urine Urobilinogen (Negative) Ur Leukocyte Esterase (Negative) Urine Osmolality (500-800) mOsm/kg Ur Random Sodium mmol/L Adenovirus (PCR) (NotDetected) B. pertussis DNA (PCR) (NotDetected) B.parapertussis DNA PCR (NotDetected) C. pneumoniae DNA (PCR) (NotDetected) Coronavirus OC43 (PCR) (NotDetected) Coronavirus HKU1 (PCR) (NotDetected) Coronavirus 229E (PCR) (NotDetected) SARS-CoV-2 (PCR) (NotDetected) Coronavirus NL63 (PCR) (NotDetected) Human Metapneumovir PCR (NotDetected) Influenza Type A (PCR) (NotDetected) Influenza Type B (PCR) (NotDetected) M. pneumoniae (PCR) (NotDetected) Parainfluenza 1 (PCR) (NotDetected) Parainfluenza 2 (PCR) (NotDetected) Parainfluenza 3 (PCR) (NotDetected) Parainfluenza 4 (PCR) (NotDetected) RSV (PCR) (NotDetected) Entero/Rhino (PCR) (NotDetected) Administered Medications Doxycycline Hyclate 100 mg/ (Dextrose) 110 mls @ 50 mls/hr IV NOW STA Stop: 06/28/22 22:41 Last Admin: 06/28/22 21:14 Dose: 50 mls/hr Documented By: GREG Discontinued Medications Acetaminophen (Acetaminophen 500 Mg Tab) 1,000 mg PO NOW STA Stop: 06/28/22 17:13 Last Admin: 06/28/22 17:44 Dose: 1,000 mg Documented By: GREG Albuterol (Albut/Ipratrop 3mg/0.5mg Neb 3 Ml Vial) 3 ml NEB NOW STA; Protocol Stop: 06/28/22 20:31 Last Admin: 06/28/22 20:36 Dose: 3 ml Documented By: MES Sodium Chloride (Nss 1000ml) 1,000 mls @ 999 mls/hr IV .Q1H1M LARRY Stop: 06/28/22 18:15 Last Infusion: 06/28/22 18:50 Dose: 0 mls/hr Documented By: Admin: 06/28/22 17:42 Dose: 999 mls/hr Documented By: MES Sodium Chloride (Nss 1000ml) 1,000 mls @ 200 mls/hr IV .Q5H STA Stop: 06/28/22 22:11 Last Admin: 06/28/22 19:40 Dose: 200 mls/hr Documented By: MES Sodium Chloride (Nss 1000ml) 500 mls @ 999 mls/hr IV .Q31M ONE Stop: 06/28/22 18:55 Last Infusion: 06/28/22 19:09 Dose: 0 mls/hr Documented By: Admin: 06/28/22 18:36 Dose: 999 mls/hr Documented By: MES Cefepime HCl (Maxipime) 2,000 mg in 20 mls @ 5 mls/min IV NOW STA; Protocol Stop: 06/28/22 18:28 Last Admin: 06/28/22 18:36 Dose: 5 mls/min Documented By: MES Imaging Data Radiologist's Impression: Chest X-Ray 06/28/22 17:12 XR chest 1V portable HISTORY: 51 years-old Female Dyspnea acute shortness of breath COMPARISON: Chest radiograph 01/28/2022 TECHNIQUE: AP view of the chest FINDINGS: Cardiac silhouette is mildly enlarged. Mild right hemidiaphragmatic elevation. No pneumothorax, pleural effusion, airspace consolidation or overt pulmonary edema identified. Bones of the chest appear grossly intact. IMPRESSION: No acute process. ACT 112: Negative or not required by law. The above report was generated using voice recognition software. It may contain grammatical, syntax or spelling errors. Electronically signed by: Konstantin Licea M.D. 06/28/2022 6:11 PM Discharge Plan Visit Data Chief Complaint: Respiratory Problems Stated Complaint: RESP ISSUES, SOB, DIZZY, LOW GRADE FEVER, CHILLS ED Provider: Randal Rodriguez Discharge Problem: Flu-like symptoms, Leukocytosis, Fever, Rhinovirus infection, Hyponatremia, Shortness of breath Patient Disposition: Admitted As Inpatient Discharge Instructions Interventions: ED Discharge Assessment Last Done: 06/28/22 21:39
[2022-06-28 19:49] LABS: Appearance Urine Clear (Clear); Bilirubin Urine Negative (Negative); Blood Urine Negative (Negative); Color Urine Yellow; Glucose Urine UA Negative (Negative); Ketones Urine Negative (Negative); Leukocyte Esterase Urine Negative (Negative); Nitrite Urine Negative (Negative); Protein Urine Negative (Negative); Specific Gravity Urine 1.003 (1.000-1.030); Urobilinogen Urine Negative (Negative)
[2022-06-28] MEDS ORDERED: ALBUT/IPRATROP 3MG/0.5MG NEB 3 ML VIAL NEB STA (20:30)
[2022-06-28] MEDS ORDERED: DOXYCYCLINE HYCLATE 100 MG in DEXTROSE 5% 100 ML IV STA (20:30)
--- NOTE | 2022-06-28 20:56 | History & Physical Report ---
Date of Service June 28, 2022 Assessment & Plan (1) Rhinovirus infection: Plan: - Elevated WBC w/ left shift, PCT 0.85 - Biofire + for entero/rhinovirus. - CXR: No acute process. - D/c cefepime and doxycycline ordered in ED. - SIRS criteria met with tachycardia, tachypnea, leukocytosis of 16. - Supportive Care: DuoNeb scheduled/prn overnight, Tylenol, Robitussin, incentive spirometry. (2) Hyponatremia: Plan: - Na 129, likely multifactorial, possible SIADH induced by Lamictal but also suspect volume depleted from illness and possibly a component of beer potomania, patient reports drinking 2 24-oz cans of beer a day, has recently cut back some. Denies history of alcohol withdrawal. - AWSS at risk protocol. - LFTS wnl. - Received 1.5L NSS bolus in ED with NS running at 200 cc/hr. - Serum osm--270, urine NA 11, indicative of volume depletion. - LRs at 150 cc/hr overnight. - BMP in AM. (3) SIRS (systemic inflammatory response syndrome): Plan - Admit to med/tele. - SCDs, defer on chemoppx given young age, mobility. - Full Code. History of Present Illness Chief Complaint: Flulike symptoms x3 days Primary Care Provider: Shakira Manzano MD Shakira Jiménez is a 51-year-old female with a past medical history of depression, bipolar disorder, and ADHD who is presenting today with shortness of breath. Beginning on Friday, 06/26 she began feeling feverish, achy all over, headache, coughing, and did feel short of breath. She wanted to wait out symptoms to make it through the and plan to see her PCP today, however the office was closed so she chose to come to ED instead. Her biggest complaints are the cough and the chest pain she feels from constantly coughing, as well as the shortness of breath. She is in using Tylenol and ibuprofen at home for fevers and aches, with minimal relief. Upon presentation to the ED, she is febrile to 100.7 F, HR 104, RR 26. 96% on room air, normotensive. Lab significant for elevated WBC of 16 with left shift, procalcitonin 0.85. Also notable for sodium of 129, CO2 18. Bio fire positive for entero/rhinovirus. Labs otherwise unremarkable, urine does not appear infected, no transaminitis or impaired renal function, or other electrolyte abnormalities other than low sodium. CXR did not show acute process. Allergies Allergy/AdvReac Type Severity Reaction Status Date / Time Penicillins Allergy Unknown RASH Verified 06/28/22 20:04 Home Medications Medication Instructions Recorded Confirmed Type acetaminophen 325 mg tablet 950 mg PO QID PRN Fever Or Pain 06/28/22 06/28/22 History (Tylenol) dextroamphetamine sulfate 15 mg 15 mg PO DAILY 06/28/22 06/28/22 History capsule,extended release ergocalciferol (vitamin D2) 1,250 1,250 mcg PO MO 06/28/22 06/28/22 History mcg (50,000 unit) capsule (Vitamin D2) ibuprofen 200 mg tablet 600 mg PO Q4 PRN Pain 06/28/22 06/28/22 History lamotrigine 200 mg tablet,extended 0 mg PO DAILY 06/28/22 06/28/22 History release 24 hr sertraline 25 mg tablet (Zoloft) 0 mg PO DAILY 06/28/22 06/28/22 History azithromycin 250 mg tablet 250 mg PO DAILY #4 tabs 06/29/22 Rx Past Med/Surg History Medical History Eclamptic seizure Hypertension Surgical History No pertinent past surgical history Family History (Updated 05/30/22 @ 10:06 by RISA oRwe) Grandfather History of open heart surgery Grandmother (Maternal) Breast cancer Denies family history of Ovarian cancer Colorectal cancer Social History (Updated 05/30/22 @ 10:06 by RISA Rowe) Smoking Status: Never smoker Tobacco Type: Cigarettes Hx Alcohol Use: Yes Alcohol type: beer Hx Substance Use: No Preferred Language: Divehi Communication Ability: Effective Fire Protection Equipment Technician Required: No Beliefs That Will Affect Care: None Current Living Situation: Family Other Information That Helps Us Care for You: No Feels Safe at Home: Yes Safety Concerns: Feels Safe At This Time Assistive Devices: None Review of Systems Review of Systems: Constitutional: fever/chills, weakness, fatigue, myalgias, anorexia x 3 days Eyes: No diplopia, no worsening or blurred vision ENT: normal hearing, no trouble swallowing Respiratory:cough and SCHMIDT x 3 days Cardiovascular: No chest pain, tightness or palpitations Abdomen: No pain, nausea, vomiting, diarrhea or constipation : Denies dysuria, hematuria, increased urgency/frequency, urinary retention Musculoskeletal: No joint pain, calf pain, swelling Neurologic: No weakness, numbness/tingling, or balance problems Psychiatric: No anxiety or depression Skin: No rash or itch Physical Exam Physical Exam: General: awake, alert, no apparent distress Head: Normocephalic, atraumatic ENT: PERRL, EOMI, no pharyngeal exudate, mucous membranes moist Chest: Clear to auscultation, on room air, no adventitious breath sounds Cardiac: Regular rate and rhythm, no murmur, no JVD, normal peripheral pulses, good capillary refill Abdominal: NABS x 4 quadrants, soft, nontender to palpation, no rebound, guarding or tenderness Extremities: Normal inspection, no peripheral edema or erythema, calfs nontender to palpation Psych: Normal mood and affect Neuro: AAO x 3, strength intact bilaterally and rated 5/5, no motor deficits, speech is clear, no peripheral sensory deficits Skin: no rash or erythema Results & Data Results & Data ([facility]) Vital Signs (Past 12 Hours) Vital Signs Temp Pulse Pulse Resp BP BP Pulse Ox 06/28/22 20:02 104 H 96 06/28/22 19:29 98 06/28/22 18:36 111 H 116/67 98 06/28/22 18:36 38.2 C H 06/28/22 17:39 06/28/22 17:07 39.6 C H 138 H 26 H 150/88 H 98 O2 Del Method 06/28/22 20:02 Room Air 06/28/22 19:29 Room Air 06/28/22 18:36 Room Air 06/28/22 18:36 06/28/22 17:39 Room Air 06/28/22 17:07 Room Air Laboratory Results Abnormal lab results 06/28/22 06/28/22 06/28/22 Range/Units 17:30 17:30 17:30 WBC 16.11 H (4.8-10.8) K/ul RBC 3.76 L (3.93-5.22) M/uL Hgb 10.1 L (12.0-16.0) g/dl Hct 32.1 L (34.1-44.9) % MCHC 31.5 L (32.0-36.0) g/dL MPV 8.8 L (9.4-12.3) fL Neut # (Auto) 14.50 H (1.4-6.5) K/uL Lymph # (Auto) 0.97 L (1.2-3.4) K/uL Immature Gran # (Auto) 0.05 H (0.00-0.02) K/uL Sodium 129 L (136-145) mmol/L Carbon Dioxide 18 L (21-32) mmol/L Glucose 104 H (70-99(Fasting)) mg/dl Osmolality (280-300) mOsm/kg Lactate (0.4-2.0) mmol/L Procalcitonin 0.85 H (0-0.5) ng/ml Entero/Rhino (PCR) (NotDetected) 06/28/22 06/28/22 06/28/22 Range/Units 17:30 17:30 17:30 WBC (4.8-10.8) K/ul RBC (3.93-5.22) M/uL Hgb (12.0-16.0) g/dl Hct (34.1-44.9) % MCHC (32.0-36.0) g/dL MPV (9.4-12.3) fL Neut # (Auto) (1.4-6.5) K/uL Lymph # (Auto) (1.2-3.4) K/uL Immature Gran # (Auto) (0.00-0.02) K/uL Sodium (136-145) mmol/L Carbon Dioxide (21-32) mmol/L Glucose (70-99(Fasting)) mg/dl Osmolality 270 L (280-300) mOsm/kg Lactate 2.3 H* (0.4-2.0) mmol/L Procalcitonin (0-0.5) ng/ml Entero/Rhino (PCR) DETECTED A* (NotDetected) Diagnostic Findings Chest X-Ray 06/28/22 17:12 XR chest 1V portable HISTORY: 51 years-old Female Dyspnea acute shortness of breath COMPARISON: Chest radiograph 01/28/2022 TECHNIQUE: AP view of the chest FINDINGS: Cardiac silhouette is mildly enlarged. Mild right hemidiaphragmatic elevation. No pneumothorax, pleural effusion, airspace consolidation or overt pulmonary edema identified. Bones of the chest appear grossly intact. IMPRESSION: No acute process. ACT 112: Negative or not required by law. The above report was generated using voice recognition software. It may contain grammatical, syntax or spelling errors. Electronically signed by: Konstantin Licea M.D. 06/28/2022 6:11 PM ECG Additional Comments: Sinus tachycardia Left axis deviation Abnormal ECG When compared with ECG of 28-JAN-2022 12:47, Vent. rate has increased BY 56 BPM. Code Status & VTE Plan Code Status Full Code. Supervising Physician Co-Signing Physician Notes Attending addendum: I have physically seen this patient, have supervised the AMY's activities, and agree with the H&P unless as otherwise noted. Assessment and Plan: Rhinovirus infection- Positive bio fire for entero-/rhinovirus DC cefepime and doxycycline started in ED SIRS criteria met Duonebs every 4 hours while awake and every 2 hours when necessary. Mucinex 1200 mg p.o. twice daily Incentive spirometry Hyponatremia- Sodium 129 on admission labs Multifactorial: Possible SIADH secondary to Lamictal, decreased oral intake and volume depletion present due to associated illness, possible component of beer potomania. Repeat laboratories in a.m. Alcohol use- AWSS at risk protocol LR at 150 mils per hour Remaining orders and notations as noted PG Care Time/CCT Total # of Minutes Spent Total Time Spent with Patient: Total time spent is greater than 50% in coordination of care (as documented) at patient's floor/unit and/or counseling patient: Coding Level of Care Code 57812 Initial Inpt Care Lvl 3 Diagnoses Rhinovirus infection B34.8 Hyponatremia E87.1 SIRS (systemic inflammatory response syndrome) R65.10
[2022-06-28] MEDS ORDERED: LORazepam 1 MG TAB PO PRN (21:24)
[2022-06-28] MEDS ORDERED: IBUPROFEN 600 MG TAB PO PRN (22:13)
[2022-06-28] MEDS ORDERED: ALBUT/IPRATROP 3MG/0.5MG NEB 3 ML VIAL NEB PRN (22:13)
[2022-06-28] MEDS ORDERED: POLYETHYLENE (MIRALAX) 17 GM PACK PO PRN (22:13)
[2022-06-28] MEDS ORDERED: ACETAMINOPHEN 325 MG TAB PO PRN (22:13)
[2022-06-28] MEDS ORDERED: ONDANSETRON INJ 2 MG/ML 2 ML VIAL IV PRN (22:13)
[2022-06-28] MEDS ORDERED: ALUMINUM/MAGNESIUM SUSP 30 ML UDC PO PRN (22:13)
[2022-06-28] MEDS: LACTATED RINGER'S 1,000 ML IV SCH (22:46)
[2022-06-28] MEDS ORDERED: ALBUTEROL HFA 8 GM INHALER INH PRN (23:07)
[2022-06-28] MEDS: THIAMINE HCL 100 MG TAB PO SCH (23:29)
[2022-06-28] MEDS: guaiFENesin/DEXTROM SYRUP 200MG/20MG 10ML UDC PO PRN (23:29)
[2022-06-29] MEDS ORDERED: ALBUT/IPRATROP 3MG/0.5MG NEB 3 ML VIAL INH SCH (01:00)
[2022-06-29] MEDS: ALBUTEROL HFA 8 GM INHALER INH SCH ×2 (05:18→11:31)
[2022-06-29] MEDS: LACTATED RINGER'S 1,000 ML IV SCH ×2 (05:53→12:23)
[2022-06-29 06:48] LABS: Hematocrit (blood only) 27.8 % (34.1-44.9); Hemoglobin 8.8 g/dl (12.0-16.0); Mean Corpuscular Hemoglobin 26.6 pg (25.0-34.0); Mean Corpuscular Hgb Conc 31.7 g/dL (32.0-36.0); Mean Platelet Volume 8.7 fL (9.4-12.3); Platelet Count 303 K/uL (130-400); RDW Coefficient of Variation 12.8 % (11.5-14.5); Red Blood Count 3.31 M/uL (3.93-5.22); White Blood Count 10.81 K/ul (4.8-10.8)
[2022-06-29 07:10] LABS: Basophils # (auto) 0.03 K/uL (0-0.2); Basophils % (auto) 0.3 %; Dohle Bodies 1+; Eosinophils # (auto) 0.07 K/uL (0-0.50); Eosinophils % (auto) 0.6 %; Immature Granulocytes # (auto) 0.03 K/uL (0.00-0.02); Immature Granulocytes % (auto) 0.3 %; Lymphocytes # (auto) 1.03 K/uL (1.2-3.4); Lymphocytes % (auto) 9.5 %; Monocytes # (auto) 0.57 K/uL (0.24-0.82); Monocytes % (auto) 5.3 %; Neutrophils # (auto) 9.08 K/uL (1.4-6.5); Toxic Granulation 1+
[2022-06-29 07:14] LABS: BUN Creatinine Ratio 12.1 (10-20); Calcium 8.2 mg/dl (8.5-10.1); Creatinine Clr Calc Pharmacy 123.2 ml/min; Est GFR (African American) 125.4 ml/min; Est GFR (Non-African American) 108.2 ml/min
--- NOTE | 2022-06-29 07:18 | Electrocardiogram Report ---
Test Reason : Blood Pressure : / mmHG Vent. Rate : 127 BPM Atrial Rate : 127 BPM P-R Int : 128 ms QRS Dur : 088 ms QT Int : 298 ms P-R-T Axes : 023 -31 017 degrees QTc Int : 433 ms Sinus tachycardia Left axis deviation Abnormal ECG When compared with ECG of 28-JAN-2022 12:47, Vent. rate has increased BY 56 BPM Confirmed by Samm Maldonado ([id number]) on 06/29/2022 7:18:07 AM Referred By: REFERRED SELF Confirmed By:Neri Maldonado
[2022-06-29] MEDS ORDERED: POTASSIUM CHLORIDE CRTAB 20 MEQ TABCR PO STA (07:54)
--- NOTE | 2022-06-29 08:00 | Hospitalist Progress Note ---
Date of Service June 29, 2022 Assessment & Plan (1) Rhinovirus infection: Plan: - Elevated WBC w/ left shift, PCT 0.85, improved - Biofire + for entero/rhinovirus. - CXR: No acute process. - D/c'd cefepime and doxycycline ordered in ED. - SIRS criteria met with tachycardia, tachypnea, leukocytosis of 16; no longer meets criteria - Supportive Care: DuoNeb scheduled/prn overnight, Tylenol, Robitussin, incentive spirometry. (2) Hyponatremia: Plan: - Na 129, likely multifactorial, possible SIADH induced by Lamictal but also suspect volume depleted from illness and possibly a component of beer potomania, patient reports drinking 2 24-oz cans of beer a day, has recently cut back some. Denies history of alcohol withdrawal. Sodium improved. - AWSS at risk protocol. - LFTS wnl. - Received 1.5L NSS bolus in ED with NS running at 200 cc/hr. - Serum osm--270, urine NA 11, indicative of volume depletion. - LRs at 150 cc/hr overnight. - hold lamictal for now - BMP in AM. (3) SIRS (systemic inflammatory response syndrome): Plan DVT ppx: SCDs, defer on chemoppx given young age, mobility. FEN/GI: regular, LRs Code Status: full Dispo: med tele Admission and Anticipated Discharge Date Admission Date: June 28, 2022 Subjective Seen at bedside this morning. Feels alot better from yesterday, Still has intermittent cough with subsequent sob but mild. Good oral intake, still on IV fluids. Denies fevers, abd pain, chest pain, headache, N/V. Review of Systems Review of Systems: All systems reviewed & are unremarkable except as noted in HPI & below Physical Exam Physical Exam: General: awake, alert, no apparent distress Head: Normocephalic, atraumatic ENT: EOMI, mucous membranes moist Chest: CTAB, no adventitious breath sounds Cardiac: RRR, no murmur Abdominal: NABS x 4 quadrants, soft, nontender to palpation, no rebound, guarding or tenderness Extremities: Normal inspection, no peripheral edema or erythema Psych: Normal mood and affect Neuro: AAO x 3, speech is clear, no peripheral sensory deficits Skin: no rash or erythema Results & Data Results & Data ([facility]) Vital Signs (Past 12 Hours) Vital Signs Temp Pulse Pulse Resp BP BP Pulse Ox 06/29/22 07:50 37.2 C 99 H 19 126/83 97 06/29/22 05:56 37.1 C 102 H 18 119/78 94 06/29/22 05:18 100 H 18 96 06/29/22 02:06 97 06/29/22 02:01 37.3 C 110 H 18 120/71 92 06/29/22 00:44 108 H 06/28/22 21:58 06/28/22 21:58 37.4 C 116 H 18 119/69 96 06/28/22 21:58 37.4 C 116 H 18 119/69 96 06/28/22 20:02 104 H 96 O2 Del Method O2 Flow Rate 06/29/22 07:50 Nasal Cannula 2 06/29/22 05:56 Room Air, Nasal Cannula 2 06/29/22 05:18 Nasal Cannula 2 06/29/22 02:06 Nasal Cannula 2 06/29/22 02:01 Room Air 06/29/22 00:44 06/28/22 21:58 Room Air 06/28/22 21:58 Room Air 06/28/22 21:58 Room Air 06/28/22 20:02 Room Air Laboratory Results 06/29/22 06/29/22 06/28/22 Range/Units 06:09 06:09 19:50 WBC 10.81 H (4.8-10.8) K/ul RBC 3.31 L (3.93-5.22) M/uL Hgb 8.8 L (12.0-16.0) g/dl Hct 27.8 L (34.1-44.9) % MCV 84.0 (80.0-100.0) fL MCH 26.6 (25.0-34.0) pg MCHC 31.7 L (32.0-36.0) g/dL RDW Std Deviation 39.0 (36.4-46.3) fL RDW Coeff of Andrea 12.8 (11.5-14.5) % Plt Count 303 (130-400) K/uL MPV 8.7 L (9.4-12.3) fL Immature Gran % (Auto) 0.3 % Neut % (Auto) 84.0 % Lymph % (Auto) 9.5 % [place] % (Auto) 5.3 % Eos % (Auto) 0.6 % Baso % (Auto) 0.3 % Neut # (Auto) 9.08 H (1.4-6.5) K/uL Lymph # (Auto) 1.03 L (1.2-3.4) K/uL [place] # (Auto) 0.57 (0.24-0.82) K/uL Eos # (Auto) 0.07 (0-0.50) K/uL Baso # (Auto) 0.03 (0-0.2) K/uL Immature Gran # (Auto) 0.03 H (0.00-0.02) K/uL Toxic Granulation 1+ Dohle Bodies 1+ Sodium 134 L (136-145) mmol/L Potassium 3.0 L (3.5-5.1) mmol/L Chloride 105 (98-107) mmol/L Carbon Dioxide 20 L (21-32) mmol/L Anion Gap 9 (3-11) BUN 7 (6-23) mg/dl Creatinine 0.58 L (0.6-1.2) mg/dl Est Cr Clr Drug Dosing 123.2 ml/min Est GFR ( Amer) 125.4 ml/min Est GFR (Non-Af Amer) 108.2 ml/min BUN/Creatinine Ratio 12.1 (10-20) Glucose 100 H (70-99(Fasting)) mg/dl Osmolality (280-300) mOsm/kg Lactate 0.8 (0.4-2.0) mmol/L Calcium 8.2 L (8.5-10.1) mg/dl Total Bilirubin (0.2-1.0) mg/dl AST (13-39) U/L ALT (7-52) U/L Alkaline Phosphatase (34-104) U/L Troponin I High Sens (0-14) pg/ml Total Protein (6.0-8.3) gm/dl Albumin (3.4-5.0) gm/dl Globulin (2.5-4.0) gm/dl Albumin/Globulin Ratio (0.9-2) Procalcitonin (0-0.5) ng/ml Urine Color Urine Appearance (Clear) Urine pH (4.5-7.5) Ur Specific [place] (1.000-1.030) Urine Protein (Negative) Urine Glucose (UA) (Negative) Urine Ketones (Negative) Urine Blood (Negative) Urine Nitrite (Negative) Urine Bilirubin (Negative) Urine Urobilinogen (Negative) Ur Leukocyte Esterase (Negative) Urine Osmolality (500-800) mOsm/kg Ur Random Sodium mmol/L Adenovirus (PCR) (NotDetected) B. pertussis DNA (PCR) (NotDetected) B.parapertussis DNA PCR (NotDetected) C. pneumoniae DNA (PCR) (NotDetected) Coronavirus OC43 (PCR) (NotDetected) Coronavirus HKU1 (PCR) (NotDetected) Coronavirus 229E (PCR) (NotDetected) SARS-CoV-2 (PCR) (NotDetected) Coronavirus NL63 (PCR) (NotDetected) Human Metapneumovir PCR (NotDetected) Influenza Type A (PCR) (NotDetected) Influenza Type B (PCR) (NotDetected) M. pneumoniae (PCR) (NotDetected) Parainfluenza 1 (PCR) (NotDetected) Parainfluenza 2 (PCR) (NotDetected) Parainfluenza 3 (PCR) (NotDetected) Parainfluenza 4 (PCR) (NotDetected) RSV (PCR) (NotDetected) Entero/Rhino (PCR) (NotDetected) 06/28/22 06/28/22 06/28/22 Range/Units 19:40 19:40 19:36 WBC (4.8-10.8) K/ul RBC (3.93-5.22) M/uL Hgb (12.0-16.0) g/dl Hct (34.1-44.9) % MCV (80.0-100.0) fL MCH (25.0-34.0) pg MCHC (32.0-36.0) g/dL RDW Std Deviation (36.4-46.3) fL RDW Coeff of Andrea (11.5-14.5) % Plt Count (130-400) K/uL MPV (9.4-12.3) fL Immature Gran % (Auto) % Neut % (Auto) % Lymph % (Auto) % [place] % (Auto) % Eos % (Auto) % Baso % (Auto) % Neut # (Auto) (1.4-6.5) K/uL Lymph # (Auto) (1.2-3.4) K/uL [place] # (Auto) (0.24-0.82) K/uL Eos # (Auto) (0-0.50) K/uL Baso # (Auto) (0-0.2) K/uL Immature Gran # (Auto) (0.00-0.02) K/uL Toxic Granulation Dohle Bodies Sodium (136-145) mmol/L Potassium (3.5-5.1) mmol/L Chloride (98-107) mmol/L Carbon Dioxide (21-32) mmol/L Anion Gap (3-11) BUN (6-23) mg/dl Creatinine (0.6-1.2) mg/dl Est Cr Clr Drug Dosing ml/min Est GFR ( Amer) ml/min Est GFR (Non-Af Amer) ml/min BUN/Creatinine Ratio (10-20) Glucose (70-99(Fasting)) mg/dl Osmolality (280-300) mOsm/kg Lactate (0.4-2.0) mmol/L Calcium (8.5-10.1) mg/dl Total Bilirubin (0.2-1.0) mg/dl AST (13-39) U/L ALT (7-52) U/L Alkaline Phosphatase (34-104) U/L Troponin I High Sens (0-14) pg/ml Total Protein (6.0-8.3) gm/dl Albumin (3.4-5.0) gm/dl Globulin (2.5-4.0) gm/dl Albumin/Globulin Ratio (0.9-2) Procalcitonin (0-0.5) ng/ml Urine Color Yellow Urine Appearance Clear (Clear) Urine pH 7.0 (4.5-7.5) Ur Specific [place] 1.003 (1.000-1.030) Urine Protein Negative (Negative) Urine Glucose (UA) Negative (Negative) Urine Ketones Negative (Negative) Urine Blood Negative (Negative) Urine Nitrite Negative (Negative) Urine Bilirubin Negative (Negative) Urine Urobilinogen Negative (Negative) Ur Leukocyte Esterase Negative (Negative) Urine Osmolality 62 L (500-800) mOsm/kg Ur Random Sodium 11 mmol/L Adenovirus (PCR) (NotDetected) B. pertussis DNA (PCR) (NotDetected) B.parapertussis DNA PCR (NotDetected) C. pneumoniae DNA (PCR) (NotDetected) Coronavirus OC43 (PCR) (NotDetected) Coronavirus HKU1 (PCR) (NotDetected) Coronavirus 229E (PCR) (NotDetected) SARS-CoV-2 (PCR) (NotDetected) Coronavirus NL63 (PCR) (NotDetected) Human Metapneumovir PCR (NotDetected) Influenza Type A (PCR) (NotDetected) Influenza Type B (PCR) (NotDetected) M. pneumoniae (PCR) (NotDetected) Parainfluenza 1 (PCR) (NotDetected) Parainfluenza 2 (PCR) (NotDetected) Parainfluenza 3 (PCR) (NotDetected) Parainfluenza 4 (PCR) (NotDetected) RSV (PCR) (NotDetected) Entero/Rhino (PCR) (NotDetected) 06/28/22 06/28/22 06/28/22 Range/Units 17:30 17:30 17:30 WBC (4.8-10.8) K/ul RBC (3.93-5.22) M/uL Hgb (12.0-16.0) g/dl Hct (34.1-44.9) % MCV (80.0-100.0) fL MCH (25.0-34.0) pg MCHC (32.0-36.0) g/dL RDW Std Deviation (36.4-46.3) fL RDW Coeff of Andrea (11.5-14.5) % Plt Count (130-400) K/uL MPV (9.4-12.3) fL Immature Gran % (Auto) % Neut % (Auto) % Lymph % (Auto) % [place] % (Auto) % Eos % (Auto) % Baso % (Auto) % Neut # (Auto) (1.4-6.5) K/uL Lymph # (Auto) (1.2-3.4) K/uL [place] # (Auto) (0.24-0.82) K/uL Eos # (Auto) (0-0.50) K/uL Baso # (Auto) (0-0.2) K/uL Immature Gran # (Auto) (0.00-0.02) K/uL Toxic Granulation Dohle Bodies Sodium (136-145) mmol/L Potassium (3.5-5.1) mmol/L Chloride (98-107) mmol/L Carbon Dioxide (21-32) mmol/L Anion Gap (3-11) BUN (6-23) mg/dl Creatinine (0.6-1.2) mg/dl Est Cr Clr Drug Dosing ml/min Est GFR ( Amer) ml/min Est GFR (Non-Af Amer) ml/min BUN/Creatinine Ratio (10-20) Glucose (70-99(Fasting)) mg/dl Osmolality 270 L (280-300) mOsm/kg Lactate 2.3 H* (0.4-2.0) mmol/L Calcium (8.5-10.1) mg/dl Total Bilirubin (0.2-1.0) mg/dl AST (13-39) U/L ALT (7-52) U/L Alkaline Phosphatase (34-104) U/L Troponin I High Sens (0-14) pg/ml Total Protein (6.0-8.3) gm/dl Albumin (3.4-5.0) gm/dl Globulin (2.5-4.0) gm/dl Albumin/Globulin Ratio (0.9-2) Procalcitonin (0-0.5) ng/ml Urine Color Urine Appearance (Clear) Urine pH (4.5-7.5) Ur Specific [place] (1.000-1.030) Urine Protein (Negative) Urine Glucose (UA) (Negative) Urine Ketones (Negative) Urine Blood (Negative) Urine Nitrite (Negative) Urine Bilirubin (Negative) Urine Urobilinogen (Negative) Ur Leukocyte Esterase (Negative) Urine Osmolality (500-800) mOsm/kg Ur Random Sodium mmol/L Adenovirus (PCR) Not Detected (NotDetected) B. pertussis DNA (PCR) Not Detected (NotDetected) B.parapertussis DNA PCR Not Detected (NotDetected) C. pneumoniae DNA (PCR) Not Detected (NotDetected) Coronavirus OC43 (PCR) Not Detected (NotDetected) Coronavirus HKU1 (PCR) Not Detected (NotDetected) Coronavirus 229E (PCR) Not Detected (NotDetected) SARS-CoV-2 (PCR) Not Detected (NotDetected) Coronavirus NL63 (PCR) Not Detected (NotDetected) Human Metapneumovir PCR Not Detected (NotDetected) Influenza Type A (PCR) Not Detected (NotDetected) Influenza Type B (PCR) Not Detected (NotDetected) M. pneumoniae (PCR) Not Detected (NotDetected) Parainfluenza 1 (PCR) Not Detected (NotDetected) Parainfluenza 2 (PCR) Not Detected (NotDetected) Parainfluenza 3 (PCR) Not Detected (NotDetected) Parainfluenza 4 (PCR) Not Detected (NotDetected) RSV (PCR) Not Detected (NotDetected) Entero/Rhino (PCR) DETECTED A* (NotDetected) 06/28/22 06/28/22 06/28/22 Range/Units 17:30 17:30 17:30 WBC 16.11 H (4.8-10.8) K/ul RBC 3.76 L (3.93-5.22) M/uL Hgb 10.1 L (12.0-16.0) g/dl Hct 32.1 L (34.1-44.9) % MCV 85.4 (80.0-100.0) fL MCH 26.9 (25.0-34.0) pg MCHC 31.5 L (32.0-36.0) g/dL RDW Std Deviation 39.4 (36.4-46.3) fL RDW Coeff of Andrea 12.7 (11.5-14.5) % Plt Count 363 (130-400) K/uL MPV 8.8 L (9.4-12.3) fL Immature Gran % (Auto) 0.3 % Neut % (Auto) 90.0 % Lymph % (Auto) 6.0 % [place] % (Auto) 2.9 % Eos % (Auto) 0.3 % Baso % (Auto) 0.5 % Neut # (Auto) 14.50 H (1.4-6.5) K/uL Lymph # (Auto) 0.97 L (1.2-3.4) K/uL [place] # (Auto) 0.46 (0.24-0.82) K/uL Eos # (Auto) 0.05 (0-0.50) K/uL Baso # (Auto) 0.08 (0-0.2) K/uL Immature Gran # (Auto) 0.05 H (0.00-0.02) K/uL Toxic Granulation Dohle Bodies Sodium 129 L (136-145) mmol/L Potassium 3.6 (3.5-5.1) mmol/L Chloride 101 (98-107) mmol/L Carbon Dioxide 18 L (21-32) mmol/L Anion Gap 10 (3-11) BUN 12 (6-23) mg/dl Creatinine 0.72 (0.6-1.2) mg/dl Est Cr Clr Drug Dosing 103.3 ml/min Est GFR ( Amer) 114.0 ml/min Est GFR (Non-Af Amer) 98.3 ml/min BUN/Creatinine Ratio 16.7 (10-20) Glucose 104 H (70-99(Fasting)) mg/dl Osmolality (280-300) mOsm/kg Lactate (0.4-2.0) mmol/L Calcium 8.5 (8.5-10.1) mg/dl Total Bilirubin 0.7 (0.2-1.0) mg/dl AST 24 (13-39) U/L ALT 14 (7-52) U/L Alkaline Phosphatase 92 (34-104) U/L Troponin I High Sens 11.2 D (0-14) pg/ml Total Protein 7.5 (6.0-8.3) gm/dl Albumin 3.5 (3.4-5.0) gm/dl Globulin 4.0 (2.5-4.0) gm/dl Albumin/Globulin Ratio 0.9 (0.9-2) Procalcitonin 0.85 H (0-0.5) ng/ml Urine Color Urine Appearance (Clear) Urine pH (4.5-7.5) Ur Specific [place] (1.000-1.030) Urine Protein (Negative) Urine Glucose (UA) (Negative) Urine Ketones (Negative) Urine Blood (Negative) Urine Nitrite (Negative) Urine Bilirubin (Negative) Urine Urobilinogen (Negative) Ur Leukocyte Esterase (Negative) Urine Osmolality (500-800) mOsm/kg Ur Random Sodium mmol/L Adenovirus (PCR) (NotDetected) B. pertussis DNA (PCR) (NotDetected) B.parapertussis DNA PCR (NotDetected) C. pneumoniae DNA (PCR) (NotDetected) Coronavirus OC43 (PCR) (NotDetected) Coronavirus HKU1 (PCR) (NotDetected) Coronavirus 229E (PCR) (NotDetected) SARS-CoV-2 (PCR) (NotDetected) Coronavirus NL63 (PCR) (NotDetected) Human Metapneumovir PCR (NotDetected) Influenza Type A (PCR) (NotDetected) Influenza Type B (PCR) (NotDetected) M. pneumoniae (PCR) (NotDetected) Parainfluenza 1 (PCR) (NotDetected) Parainfluenza 2 (PCR) (NotDetected) Parainfluenza 3 (PCR) (NotDetected) Parainfluenza 4 (PCR) (NotDetected) RSV (PCR) (NotDetected) Entero/Rhino (PCR) (NotDetected)
[2022-06-29] MEDS ORDERED: SERTRALINE HCL 50 MG TABLET PO SCH (09:00)
[2022-06-29] MEDS ORDERED: FOLIC ACID 1 MG TAB PO SCH (09:00)
[2022-06-29] MEDS: THIAMINE HCL 100 MG TAB PO SCH (09:31)
[2022-06-29] MEDS ORDERED: POTASSIUM CHLORIDE CRTAB 20 MEQ TABCR PO ONE (11:00)
[2022-06-29] MEDS: guaiFENesin/DEXTROM SYRUP 200MG/20MG 10ML UDC PO PRN (12:40)
[2022-06-29] MEDS ORDERED: AMOXICILLIN/CLAVULANATE 875 MG TAB PO ONE (13:01)
[2022-06-29] MEDS ORDERED: AZITHROMYCIN 250 MG TAB PO ONE (13:10)
--- NOTE | 2022-06-29 13:20 | Discharge Summary ---
Date of Service June 29, 2022 Admission HPI Per Admitting Provider Shakira Jiménez is a 51-year-old female with a past medical history of depression, bipolar disorder, and ADHD who is presenting today with shortness of breath. Beginning on Friday, 06/26 she began feeling feverish, achy all over, headache, coughing, and did feel short of breath. She wanted to wait out symptoms to make it through the and plan to see her PCP today, however the office was closed so she chose to come to ED instead. Her biggest complaints are the cough and the chest pain she feels from constantly coughing, as well as the shortness of breath. She is in using Tylenol and ibu profen at home for fevers and aches, with minimal relief. Upon presentation to the ED, she is febrile to 100.7 F, HR 104, RR 26. 96% on room air, normotensive. Lab significant for elevated WBC of 16 with left shift, procalcitonin 0.85. Also notable for sodium of 129, CO2 18. Bio fire positive for entero/rhinovirus. Labs otherwise unremarkable, urine does not appear infected, no transaminitis or impaired renal function, or other electrolyte abnormalities other than low sodium. CXR did not show acute process. Principal Diagnosis rhinovirus, CAP Discharge Exam General: awake, alert, no apparent distress Head: Normocephalic, atraumatic ENT: EOMI, mucous membranes moist Chest: mild rales RLL otherwise CTAB, no increased work of breathing Cardiac: RRR, no murmur Abdominal: NABS x 4 quadrants, soft, nontender to palpation, no rebound, guarding or tenderness Extremities: Normal inspection, no peripheral edema or erythema Psych: Normal mood and affect Neuro: AAO x 3, speech is clear, no peripheral sensory deficits Skin: no rash or erythema Discharge Data Allergies Allergy/AdvReac Type Severity Reaction Status Date / Time Penicillins Allergy Unknown RASH Verified 06/28/22 20:04 Consultations 06/28/22 20:33 ED Decision to Admit Stat Ordered Studies Laboratory Results WBC 10.81 K/ul (4.8-10.8) H 06/29/22 06:09 RBC 3.31 M/uL (3.93-5.22) L 06/29/22 06:09 Hgb 8.8 g/dl (12.0-16.0) L 06/29/22 06:09 Hct 27.8 % (34.1-44.9) L 06/29/22 06:09 MCV 84.0 fL (80.0-100.0) 06/29/22 06:09 MCH 26.6 pg (25.0-34.0) 06/29/22 06:09 MCHC 31.7 g/dL (32.0-36.0) L 06/29/22 06:09 RDW Std Deviation 39.0 fL (36.4-46.3) 06/29/22 06:09 RDW Coeff of Andrea 12.8 % (11.5-14.5) 06/29/22 06:09 Plt Count 303 K/uL (130-400) 06/29/22 06:09 MPV 8.7 fL (9.4-12.3) L 06/29/22 06:09 Immature Gran % (Auto) 0.3 % 06/29/22 06:09 Neut % (Auto) 84.0 % 06/29/22 06:09 Lymph % (Auto) 9.5 % 06/29/22 06:09 [place] % (Auto) 5.3 % 06/29/22 06:09 Eos % (Auto) 0.6 % 06/29/22 06:09 Baso % (Auto) 0.3 % 06/29/22 06:09 Neut # (Auto) 9.08 K/uL (1.4-6.5) H 06/29/22 06:09 Lymph # (Auto) 1.03 K/uL (1.2-3.4) L 06/29/22 06:09 [place] # (Auto) 0.57 K/uL (0.24-0.82) 06/29/22 06:09 Eos # (Auto) 0.07 K/uL (0-0.50) 06/29/22 06:09 Baso # (Auto) 0.03 K/uL (0-0.2) 06/29/22 06:09 Immature Gran # (Auto) 0.03 K/uL (0.00-0.02) H 06/29/22 06:09 Toxic Granulation 1+ 06/29/22 06:09 Dohle Bodies 1+ 06/29/22 06:09 Sodium 134 mmol/L (136-145) L 06/29/22 06:09 Potassium 3.0 mmol/L (3.5-5.1) L 06/29/22 06:09 Chloride 105 mmol/L (98-107) 06/29/22 06:09 Carbon Dioxide 20 mmol/L (21-32) L 06/29/22 06:09 Anion Gap 9 (3-11) 06/29/22 06:09 BUN 7 mg/dl (6-23) 06/29/22 06:09 Creatinine 0.58 mg/dl (0.6-1.2) L 06/29/22 06:09 Est Cr Clr Drug Dosing 123.2 ml/min 06/29/22 06:09 Est GFR ( Amer) 125.4 ml/min 06/29/22 06:09 Est GFR (Non-Af Amer) 108.2 ml/min 06/29/22 06:09 BUN/Creatinine Ratio 12.1 (10-20) 06/29/22 06:09 Glucose 100 mg/dl (70-99(Fasting)) H 06/29/22 06:09 Osmolality 270 mOsm/kg (280-300) L 06/28/22 17:30 Lactate 0.8 mmol/L (0.4-2.0) 06/28/22 19:50 Calcium 8.2 mg/dl (8.5-10.1) L 06/29/22 06:09 Total Bilirubin 0.7 mg/dl (0.2-1.0) 06/28/22 17:30 AST 24 U/L (13-39) 06/28/22 17:30 ALT 14 U/L (7-52) 06/28/22 17:30 Alkaline Phosphatase 92 U/L (34-104) 06/28/22 17:30 Troponin I High Sens 11.2 pg/ml (0-14) D 06/28/22 17:30 Total Protein 7.5 gm/dl (6.0-8.3) 06/28/22 17:30 Albumin 3.5 gm/dl (3.4-5.0) 06/28/22 17:30 Globulin 4.0 gm/dl (2.5-4.0) 06/28/22 17:30 Albumin/Globulin Ratio 0.9 (0.9-2) 06/28/22 17:30 Procalcitonin 0.85 ng/ml (0-0.5) H 06/28/22 17:30 Urine Color Yellow 06/28/22 19:36 Urine Appearance Clear (Clear) 06/28/22 19:36 Urine pH 7.0 (4.5-7.5) 06/28/22 19:36 Ur Specific [place] 1.003 (1.000-1.030) 06/28/22 19:36 Urine Protein Negative (Negative) 06/28/22 19:36 Urine Glucose (UA) Negative (Negative) 06/28/22 19:36 Urine Ketones Negative (Negative) 06/28/22 19: Urine Blood Negative (Negative) 06/28/22: Urine Nitrite Negative (Negative) 06/28/22 19: Urine Bilirubin Negative (Negative) 06/28/22 19: Urine Urobilinogen Negative (Negative) 06/28/22 19:36 Ur Leukocyte Esterase Negative (Negative) 06/28/22 19:36 Urine Osmolality 62 mOsm/kg (500-800) L 06/28/22 19:40 Ur Random Sodium 11 mmol/L 06/28/22 19:40 Adenovirus (PCR) Not Detected (NotDetected) 06/28/22 17:30 B. pertussis DNA (PCR) Not Detected (NotDetected) 06/28/22 17:30 B.parapertussis DNA PCR Not Detected (NotDetected) 06/28/22 17:30 C. pneumoniae DNA (PCR) Not Detected (NotDetected) 06/28/22 17:30 Coronavirus OC43 (PCR) Not Detected (NotDetected) 06/28/22 17:30 Coronavirus HKU1 (PCR) Not Detected (NotDetected) 06/28/22 17:30 Coronavirus 229E (PCR) Not Detected (NotDetected) 06/28/22 17:30 SARS-CoV-2 (PCR) Not Detected (NotDetected) 06/28/22 17:30 Coronavirus NL63 (PCR) Not Detected (NotDetected) 06/28/22 17:30 Human Metapneumovir PCR Not Detected (NotDetected) 06/28/22 17:30 Influenza Type A (PCR) Not Detected (NotDetected) 06/28/22 17:30 Influenza Type B (PCR) Not Detected (NotDetected) 06/28/22 17:30 M. pneumoniae (PCR) Not Detected (NotDetected) 06/28/22 17:30 Parainfluenza 1 (PCR) Not Detected (NotDetected) 06/28/22 17:30 Parainfluenza 2 (PCR) Not Detected (NotDetected) 06/28/22 17:30 Parainfluenza 3 (PCR) Not Detected (NotDetected) 06/28/22 17:30 Parainfluenza 4 (PCR) Not Detected (NotDetected) 06/28/22 17:30 RSV (PCR) Not Detected (NotDetected) 06/28/22 17:30 Entero/Rhino (PCR) DETECTED (NotDetected) A* 06/28/22 17:30 Impressions Chest X-Ray 06/28/22 17:12 XR chest 1V portable HISTORY: 51 years-old Female Dyspnea acute shortness of breath COMPARISON: Chest radiograph 01/28/2022 TECHNIQUE: AP view of the chest FINDINGS: Cardiac silhouette is mildly enlarged. Mild right hemidiaphragmatic elevation. No pneumothorax, pleural effusion, airspace consolidation or overt pulmonary edema identified. Bones of the chest appear grossly intact. IMPRESSION: No acute process. ACT 112: Negative or not required by law. The above report was generated using voice recognition software. It may contain grammatical, syntax or spelling errors. Electronically signed by: Konstantin Licea M.D. 06/28/2022 6:11 PM Hospital Course (1) CAP (community acquired pneumonia): #CAP #Rhinovirus - Elevated WBC w/ left shift, PCT 0.85, improved - Biofire + for entero/rhinovirus. - CXR: Mild right hemidiaphragmatic elevation, cannot r/o hazy consolidation - D/c'd cefepime and doxycycline ordered in ED. - SIRS criteria met with tachycardia, tachypnea, leukocytosis of 16; no longer meets criteria - Incentive spirometry - Cont. Supportive Care - will discharge patient on azithromycin - z-pack - f/u pcp #Hyponatremia - Na 129, likely multifactorial, possible SIADH induced by Lamictal but also suspect volume depleted from illness and possibly a component of beer potomania, patient reports drinking 2 24-oz cans of beer a day, has recently cut back some. Denies history of alcohol withdrawal. Sodium improved. - AWSS at risk protocol. - LFTS wnl. - Received 1.5L NSS bolus in ED with NS running at 200 cc/hr. - Serum osm--270, urine NA 11, indicative of volume depletion. - LRs at 150 cc/hr overnight, d/c'd. - cont. home meds (2) Rhinovirus infection: (3) Hyponatremia: (4) SIRS (systemic inflammatory response syndrome): Total Time Total Time Spent Total Time Spent (In Minutes): 30 Discharge Plan Discharge Items Patient Disposition: Home - Self-Care Reason For Visit: RHINOVIRUS Discharge Diagnosis: Rhinovirus, CAP Activity: Resume your previous activity Non-emergency contact: Primary Care Provider Call non-emergency contact if: you have any medication questions and your symptoms worsen Follow-up/Referrals: Shakira aMnzano MD [Primary Care Provider] - Diet: Regular Addtl Attending Provider Instructions: You were admitted to the hospital for feeling sluggish and short of breath over the last few days. You tested positive for enterovirus in the ER. We gave you a dose of antibiotics in the ER and you did seem to improve over the next day. Your chest imaging was mildly suspicious for a community-acquired pneumonia which we will go ahead and treat for the outpatient setting. We gave you a dose of azithromycin prior to your discharge and I have sent the rest of your antibiotic to your pharmacy at [facility]. You are to take azithromycin 250 mg daily for the next 4 days starting on 06/30. You should follow-up with your primary care provider within the next week to monitor for resolution of s ymptoms. Pending Studies at Discharge: No Stand-Alone Forms: My [facility] [place], Work/School Release Medications and DC Order Prescriptions: New azithromycin 250 mg tablet 250 mg PO DAILY Qty: 4 0RF Rx Instructions: start 06/30 Continued acetaminophen [Tylenol] 325 mg Tablet 950 mg PO QID PRN (Reason: Fever Or Pain) Rx Instructions: alternates with ibup. dextroamphetamine sulfate 15 mg Capsule, Extended Release 15 mg PO DAILY ibuprofen 200 mg Tablet 600 mg PO Q4 PRN (Reason: Pain) Rx Instructions: Alternates with tylenol sertraline [Zoloft] 25 mg Tablet 0 mg PO DAILY ergocalciferol (vitamin D2) [Vitamin D2] 1,250 mcg (50,000 unit) Capsule 1,250 mcg PO MO Rx Instructions: takes on of month lamotrigine 200 mg Tablet Extended Release 24hr 0 mg PO DAILY Discharge Orders: Discharge Order (Routine); Ordered 06/29/22 Ordered By: Edgar Coughlin Admission Data Admit Date/Time: 06/28/22 20:58 Attending Provider: Duran Torres Admit Provider: Forest Luu Primary Care Provider: Shakira Manzano Other Providers: Forest Luu ; Sisi Dooley ; Edgar Coughlin Other Interventions: Discharge Summary Assessment (RN) Last Done: 06/29/22 13:17 Supervising Physician Co-Signing Physician Notes I personally examined the patient and verified all gibbs points of history and exam, discussed case, and agree with decision making with Dr Coughlin. Feeling better feeling up to going home. Still with some congestion, but notes she is much improved. Vitals noted, in general she is awake and alert pleasant no distress. HEENT normocephalic atraumatic mucous membranes moist. Lungs show faint right base rales no other rales rhonchi or wheeze with good effort no accessory muscle use no conversational dyspnea. Sepsisshe did test positive for rhinovirus, but I would be hard pressed to believe that rhinovirus would cause sepsis in an immunocompetent host. However, she does have focal findings on lung exam, and her white count and procalcitonin would to be consistent with a community-acquired pneumonia. Her chest x-ray was a fairly low quality, it would be easy to believe that it could hide and in filtrated her right base. Improved on antibioticswe will send home on azithromycin. Stable for home, outpatient follow-up. Resident Activity Tracking Resident Involvement: Resident Care Provided Care Provided: Adult Hospital Medicine
--- NOTE | 2022-06-29 18:28 | Billing Data ---
Date of Service June 29, 2022 Coding Level of Care Code D/C DAY MANAGEMENT <30 MINS
[2022-07-04] MEDS ORDERED: ERGOCALCIFEROL 50,000 UNITS 1250 MCG CAP PO SCH (09:00)
== END 2022-06-29 14:23 | disposition home or self-care (01) | DRG 871 ==
LOC: ED 16:58 → SUATTDRO 20:58 → 2W 20:58